=== PATIENT | female | born 1975 | race Caucasian/White ===

== ENCOUNTER 2020-02-23 12:35 | Emergency (ER) | payer SELFPAY ==
[~2020-02-23] VITALS: Ht 154 cm; Wt 79.3 kg
[~2020-02-23 12:35] MED LIST: ACHD5005 PO; CEPH500C PO; LEVO500T69 PO; NAPR-243 PO; RABE20TA PO
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
[2020-02-23] MEDS ORDERED: KETOROLAC 60 MG/2 ML VIAL IM ONE (13:15)
[2020-02-23] MEDS ORDERED: ORPHENADRINE 60 MG/2 ML (NORFLEX) AMP (ED ONLY) IM ONE (13:15)
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
[2020-02-23] MEDS ORDERED: METH-313 PO (13:44)
[2020-02-23] MEDS ORDERED: NAPR-1071 PO (13:44)
[2020-02-23 14:00] VITALS: BP 123/74
== END 2020-02-23 13:58 | disposition home or self-care (01) ==
LOC: EDUNIT# 12:35 → ER 12:36
DX: M54.5 Low back pain (principal); F17.200 Nicotine dependence, unspecified, uncomplicated; Z88.0 Allergy status to penicillin
CPT/HCPCS: 72131

== ENCOUNTER 2020-06-28 10:44 | Emergency (ER) | payer OTHER ==
[~2020-06-28] VITALS: Ht 154.9 cm; Wt 71.2 kg
[~2020-06-28 10:44] MED LIST changes: +METH-313 PO; +NAPR-1071 PO
[2020-06-28] MEDS ORDERED: HYDROcodone/APAP 5 MG/325 MG (LORTAB) TAB PO ONE (11:00)
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
[2020-06-28 12:42] VITALS: BP 123/94
== END 2020-06-28 12:40 | disposition home or self-care (01) ==
LOC: EDUNIT# 10:44 → ER 10:47
DX: S20.212A Contusion of left front wall of thorax, initial encounter (principal); S05.12XA Contusion of eyeball and orbital tissues, left eye, initial encounter; Z88.0 Allergy status to penicillin; Y04.8XXA Assault by other bodily force, initial encounter
CPT/HCPCS: 70450; 70486; 71101; 72125

== ENCOUNTER 2020-09-22 22:55 | Emergency (ER) | payer SELFPAY ==
[~2020-09-22] VITALS: Ht 154.9 cm; Wt 71.2 kg
--- NOTE | 2020-09-22 23:13 | ED Lower Extremity ---
General Chief Complaint: Lower Extremity Stated Complaint: R FOOT PAIN AFTER FALL,BRUISING NOTED Nursing Triage Note: c/o R ankle pain after tripping on stairs Nursing Sepsis Screen: No Definite Risk Source: patient Exam Limitations: no limitations History of Present Illness Date Seen by Provider: September 22, 2020 Time Seen by Provider: 22:57 Initial Comments Patient presents ER by private conveyance with her significant other chief complaint the 10 minutes prior to arrival she was walking down the back steps which were slick and she lost her balance hyper dorsiflexing her foot. She is now having pain in her ankle starting at her right great toe radiating up the medial portion into her medial ankle. Has no previous history of injury or surgery here. She has not take anything for the pain. She had difficulty walking on it immediately after the injury. Allergies and Home Medications Allergies Coded Allergies: Penicillins (Unverified Allergy, Mild, 06/18/09) Home Medications Methocarbamol 750 Mg Tablet, 750 MG PO Q4H Prescribed by: CAM SAMAYOA on 02/23/20 1344 Naproxen 500 Mg Tablet, 500 MG PO BID PRN for PAIN-SEVERE (8-10) Prescribed by: CAM SAMAYOA on 02/23/20 1344 Patient Home Medication List Home Medication List Reviewed: Yes Review of Systems Constitutional: No chills, No diaphoresis EENTM: No ear discharge, No ear pain Respiratory: No cough, No short of breath Cardiovascular: No chest pain, No palpitations Gastrointestinal: No abdominal pain, No nausea Genitourinary: No discharge, No dysuria Musculoskeletal: see HPI; No back pain; joint pain All Other Systems Reviewed Negative Unless Noted: Yes Past Uvxlxpd-Pvnqip-Smykwx Hx Patient Social History Alcohol Use: Denies Use Smoking Status: Current Everyday Smoker Type Used: Cigarettes Recent Infectious Disease Expo: No Recent Hopitalizations: No Past Medical History Surgeries: Yes Hysterectomy Respiratory: No Cardiac: No 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 oz. kg; 29.00 BMI Method:Stated General Appearance: WD/WN, mild distress HEENT: PERRL/EOMI, pharynx normal Neck: full range of motion, normal inspection Cardiovascular: normal peripheral pulses, regular rate, rhythm Respiratory: no respiratory distress, no accessory muscle use Knees: bilateral knee non-tender, bilateral knee normal inspection, bilateral knee normal range of motion Ankles: left ankle non-tender; bilateral ankle normal inspection; left ankle normal range of motion, left ankle no evidence of injury; right ankle bone tenderness (Posterior right medial and lateral malleoli tenderness to palpation.) Feet: left foot non-tender; bilateral foot normal inspection, bilateral foot normal range of motion; left foot no evidence of injury; right foot bone tenderness (No heel tenderness but she has fourth and fifth metatarsal tenderness to palpation. No deformity, abrasion or ecchymoses) Neurologic/Tendon: normal sensation, normal motor functions, normal tendon functions, responds to pain, no evidence tendon injury Skin: normal color, warm/dry Progress/Results/Core Measures Results/Orders My Orders Orders - ALLEGRA PADILLA Ankle, Right, 3 Views (09/22/20 23:09) Foot, Right, 3 View (09/22/20 23:09) Acetaminophen Tablet (Tylenol Tablet) (09/22/20 23:15) Medications Given in ED Current Medications Medications Dose Ordered Sig/Kenyon Route Start Time Stop Time Status Last Admin Dose Admin Acetaminophen 1,000 mg ONCE ONCE PO 09/22/20 23:15 09/22/20 23:16 DC 09/22/20 23:13 1,000 MG Vital Signs/I&O 09/22/20 09/23/20 23:04 02:17 Temp 36.4 36.5 Pulse 84 80 Resp 18 18 B/P (MAP) 111/53 (72) 111/61 (72) Pulse Ox 94 95 O2 Delivery Room Air Blood Pressure Mean: 72 Progress Progress Note : Time: 23:12 Progress Note Tylenol, ice, x-ray 3 views each of the right ankle and right foot. Diagnostic Imaging Diagonstic Imaging: Xray Plain Films/CT/US/NM/MRI: ankle (Right 3 view) Comments No acute osseous abnormality on 3 view right ankle [facility], [place] NAME: NORMA MICHEL [facility] REC#: [id number] PT STATUS: DEP ER : 1975 PHYSICIAN: ALLEGRA PADILLA MD ADMIT DATE: 09/22/20/ER Signed Date of Exam:09/22/20 ANKLE, RIGHT, 3 VIEWS ANKLE, RIGHT, 3 VIEWS COMPARISON: Right foot radiographs performed concurrently INDICATION: Ankle pain after twisting injury TECHNIQUE: Non-weight bearing AP, oblique, and lateral views. FINDINGS: No fracture or traumatic malalignment. No osteochondral lesion of the talar dome. Small to moderate-sized plantar and dorsal calcaneal spurs. No features of osseous tarsal coalition. IMPRESSION: 1. No acute fracture or traumatic malalignment. Dictated by: Dictated on workstation # [id number] Dict: 09/23/2048 Trans: 09/23/2050 [facility] [id number] Interpreted by: CÉSAR SALDANA MD Electronically signed by: CÉSAR SALDANA MD 09/23/2050 Reviewed: Reviewed by Oh Diagonstic Imaging: Xray Plain Films/CT/US/NM/MRI: other (Right foot) Comments No acute osseous abnormality on 3 view right foot. There is a slight widening of the talar navicular space superiorly. [facility] [place] [place] NAME: NORMA MICHEL [facility] REC#: [id number] PT STATUS: DEP ER : 1975 PHYSICIAN: ALLEGRA PADILLA MD ADMIT DATE: 09/22/20/ER Draft Date of Exam:09/22/20 FOOT, RIGHT, 3 VIEW INDICATION: Right foot pain after fall. COMPARISON: None available. TECHNIQUE: 3 nonweightbearing views of right foot. FINDINGS: No acute fracture or traumatic malalignment. Alignment is grossly normal on nonweightbearing imaging. Small plantar and dorsal calcaneal spurs. No features of metatarsal stress fracture. No radiopaque foreign body or soft tissue gas. IMPRESSION: No acute fracture in the right foot. Dictated on workstation # [id number] Dict: 09/23/20 0659 Trans: 09/23/20 0702 PADMA [id number] Interpreted by: CÉSAR SALDANA MD Electronically signed by: Reviewed: Reviewed by Me Departure Impression Primary Impression: Right foot sprain Qualified Codes: S93.601A - Unspecified sprain of right foot, initial encounter Disposition: HOME, SELF-CARE Condition: Stable Departure-Patient Inst. Decision time for Depature: 23:45 Referrals: [facility] [place] Primary Care Physician Patient Instructions: Foot Sprain (DC) Add. Discharge Instructions: Ice pack 20 minutes on every 2 hours for the next 2 to 3 days. Keep the foot elevated above the level of your heart when possible. Use the crutches and toe-touch only as you can tolerate it when walking. Wrap the foot with an Adrián bandage or neoprene sleeve for compression to reduce pain and swelling. Follow-up in 7 to 10 days with your primary care doctor for reevaluation of your foot. Tylenol 1000 mg every 8 hours necessary for pain. Ibuprofen 800 mg every 8 hours as necessary for pain. All discharge instructions reviewed with patient and/or family. Voiced understanding. Scripts Crutch (Crutch) 1 Each Each EACH MC DAILY for Pain, #2 0 Refills Prov: ALLEGRA PADILLA 09/23/20 Work/School Note: Work Release Form Date Seen in the Emergency Department: September 22, 2020 Return to Work: Sep 24, 2020 Restrictions: No Sports-Until Released Other Restrictions Listed Below: May use crutches and toe-touch as necessary until 10/06/2020. ALLEGRA PADILLA September 22, 2020 23:13
[2020-09-22] MEDS ORDERED: ACETAMINOPHEN 500 MG TAB (TYLENOL) PO ONE (23:15)
[2020-09-23 02:17] VITALS: BP 111/61
[2020-09-23] MEDS ORDERED: CRUT1EAC7 MC (02:18)
--- NOTE | 2020-09-23 06:51 | Diagnostic Imaging Report ---
ANKLE, RIGHT, 3 VIEWS COMPARISON: Right foot radiographs performed concurrently INDICATION: Ankle pain after twisting injury TECHNIQUE: Non-weight bearing AP, oblique, and lateral views. FINDINGS: No fracture or traumatic malalignment. No osteochondral lesion of the talar dome. Small to moderate-sized plantar and dorsal calcaneal spurs. No features of osseous tarsal coalition. IMPRESSION: 1. No acute fracture or traumatic malalignment. Dictated by: Dictated on workstation # [id number]
--- NOTE | 2020-09-23 07:02 | Diagnostic Imaging Report ---
INDICATION: Right foot pain after fall. COMPARISON: None available. TECHNIQUE: 3 nonweightbearing views of right foot. FINDINGS: No acute fracture or traumatic malalignment. Alignment is grossly normal on nonweightbearing imaging. Small plantar and dorsal calcaneal spurs. No features of metatarsal stress fracture. No radiopaque foreign body or soft tissue gas. IMPRESSION: No acute fracture in the right foot. Dictated by: Dictated on workstation # [id number]
== END 2020-09-23 02:20 | disposition home or self-care (01) ==
LOC: EDUNIT# 22:55 → ER 22:57
DX: S93.601A Unspecified sprain of right foot, initial encounter (principal); G89.29 Other chronic pain; M54.9 Dorsalgia, unspecified; F17.210 Nicotine dependence, cigarettes, uncomplicated; Z79.1 Long term (current) use of non-steroidal anti-inflammatories (NSAID); W10.9XXA Fall (on) (from) unspecified stairs and steps, initial encounter
CPT/HCPCS: 73610; 73630

== ENCOUNTER 2022-11-03 11:08 | Emergency (ER) | payer SELFPAY ==
[~2022-11-03] VITALS: Ht 154.9 cm; Wt 89.1 kg
[~2022-11-03 11:08] MED LIST changes: +CRUT1EAC7 MC
--- NOTE | 2022-11-03 11:37 | ED Integumentary General ---
General Chief Complaint: Bite-Animal/Human/Insect Stated Complaint: BITE ON INNER RT THIGH Nursing Triage Note: Patient c/o possible insect bite to Rt. inner thigh that she noticed this am. Patient states the area is red and it itches. Patient denies any treatment at home. Patient denies any fevers or area draining. Source: patient Exam Limitations: no limitations History of Present Illness Date Seen by Provider: Nov 03, 2022 Time Seen by Provider: 11:26 Initial Comments 47-year-old female presents to the ER with complaints of an insect bite to her right inner thigh. States she first noticed it this morning. She reports that there was a large area of redness this morning, the redness has decreased. She states she is here because she continues to have pain and itching. She has not taken anything for pain. She denies fevers. Allergies and Home Medications Allergies Coded Allergies: diphenhydramine (Verified Allergy, Intermediate, hives, 11/03/22) Penicillins (Unverified Allergy, Mild, 06/18/09) Patient Home Medication List Home Medication List Reviewed: Yes Crutch (Crutch) 1 Each Each, EACH MC DAILY, (DME) Prescribed by: ALLEGRA PADILLA on 09/23/20 0218 Methocarbamol (Robaxin-750) 750 Mg Tablet, 750 MG PO Q4H Prescribed by: CAM SAMAYOA on 02/23/20 1344 Naproxen (Naprosyn) 500 Mg Tablet, 500 MG PO BID PRN for PAIN-SEVERE (8-10) Prescribed by: CAM SAMAYOA on 02/23/20 1344 Review of Systems Review of Systems Constitutional: see HPI Past Qeoygez-Dxilcm-Rnpcth Hx Patient Social History Tobacco Use?: Yes Tobacco type used: Cigarettes Smoking Status: Current Everyday Smoker Use of E-Cig and/or Vaping dev: No Substance use?: No Alcohol Use?: No Pt feels they are or have been: No Past Medical History Surgery/Hospitalization HX: Hysterectomy Surgeries: Yes Hysterectomy Respiratory: No Cardiac: No 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 Genitourinary: No Gastrointestinal: No Musculoskeletal: Yes Chronic Back Pain Endocrine: No HEENT: No Cancer: No Psychosocial: No Integumentary: No Blood Disorders: No Physical Exam Vital Signs Vital Signs - First Documented 11/03/22 11:16 Temp 36.8 Pulse 99 Resp 16 Pulse Ox 95 O2 Delivery Room Air Capillary Refill : Less Than 3 Seconds General Appearance: WD/WN, no apparent distress Neck: supple, normal inspection Cardiovascular: regular rate, rhythm Respiratory: lungs clear, normal breath sounds, no respiratory distress, no accessory muscle use Neurologic/Psychiatric: alert, normal mood/affect Skin: normal color, warm/dry Skin Problem Location: lower extremities (Right upper leg) Skin Problem Character: other (Small bite noted to right inner thigh, no surrounding erythema, no drainage) Progress/Results/Core Measures Results/Orders Vital Signs/I&O 11/03/22 11:16 Temp 36.8 Pulse 99 Resp 16 B/P (MAP) Pulse Ox 95 O2 Delivery Room Air Progress Progress Note : Progress Note Patient seen and evaluated, resting comfortably in bed, no acute distress. Based on exam and symptoms, wound does not appear to be infected. Patient instructed to take Tylenol and ibuprofen [id number] and to take Zyrtec or Claritin. Patient is allergic to Benadryl, but she can take Zyrtec and Claritin. Discharge instructions and return precautions provided. Departure Impression Primary Impression: Insect bite Qualified Codes: S70.361A - Insect bite (nonvenomous), right thigh, initial encounter; W57.XXXA - Bitten or stung by nonvenomous insect and other nonvenomous arthropods, initial encounter Disposition: 01 HOME, SELF-CARE Condition: Stable Departure-Patient Inst. Decision time for Depature: 11:35 Referrals: [facility] (PCP/Family) Primary Care Physician Patient Instructions: Insect bites and stings Add. Discharge Instructions: You may take 800 mg ibuprofen every 8 hours with food as needed for pain. You may take 1000 mg of Tylenol every 8 hours as needed for pain. You may use [id number] Claritin or Zyrtec once a day as needed for itching. Return if area of redness increases, you have swelling, discolored odorous drainage, fever, or any other new, concerning, or worsening symptoms. All discharge instructions reviewed with patient and/or family. Voiced understanding. HARDEEP DAILY APRN Nov 03, 2022 11:37
== END 2022-11-03 11:47 | disposition home or self-care (01) ==
LOC: EDUNIT# 11:08 → ER 11:12
DX: S70.361A Insect bite (nonvenomous), right thigh, initial encounter (principal); F17.210 Nicotine dependence, cigarettes, uncomplicated; W57.XXXA Bitten or stung by nonvenomous insect and other nonvenomous arthropods, initial encounter
CPT/HCPCS: 99281